=== PATIENT | female | born 1995 | race Caucasian/White ===

== ENCOUNTER 2018-06-24 14:14 | Emergency (ER) | payer MEDICAID ==
[2018-06-24 14:36] VITALS: PULSE 95; RESP 20; TEMP 98.4; O2SAT 97
--- NOTE | 2018-06-24 15:31 | C.PDOC ---
History Of Present Illness 23 year old female with PMHx of asthma, gastritis, and brain cyst presents to the ED complaining of shortness of breath and heart racing upon waking up this morning. States she could not breathe and it felt like a choking sensation. Also reports she was drinking alcohol last night with friends and woke up this morning with diarrhea, nausea, and vomiting. PMD: Dr. Richard Time Seen by Provider: 06/24/18 15:04 Chief Complaint (Nursing): Anxiety History Per: Patient History/Exam Limitations: no limitations Onset/Duration Of Symptoms: Hrs Current Symptoms Are (Timing): Still Present Suicide/Self Injury Attempted (Context): None Modifying Factor(s): None Past Medical History Reviewed: Historical Data, Nursing Documentation, Vital Signs Vital Signs: Last Vital Signs Temp 98.4 F 06/24/18 14:29 Pulse 95 H 06/24/18 14:29 Resp 20 06/24/18 14:29 BP Pulse Ox 97 06/24/18 14:29 - Medical History PMH: Asthma, Gastritis Denies: Chronic Kidney Disease Other PMH: brain cyst Other Surgeries: Hx of surgeries Family History: States: Other - Social History Hx Tobacco Use: No Hx Alcohol Use: Yes (socially ) Hx Substance Use: No - Immunization History Hx Tetanus Toxoid Vaccination: No Hx Influenza Vaccination: No Hx Pneumococcal Vaccination: No Review Of Systems Except As Marked, All Systems Reviewed And Found Negative. Constitutional: Negative for: Fever, Chills Cardiovascular: Negative for: Chest Pain Respiratory: Positive for: Shortness of Breath. Negative for: Cough Gastrointestinal: Positive for: Nausea, Vomiting, Diarrhea. Negative for: Abdominal Pain Physical Exam - Physical Exam Appears: Non-toxic Skin: Warm, Dry Head: Normacephalic Eye(s): bilateral: Normal Inspection Nose: Normal Oral Mucosa: Moist Neck: Supple Chest: Symmetrical Cardiovascular: Rhythm Regular Respiratory: Normal Breath Sounds, No Rales, No Rhonchi, No Wheezing Neurological/Psych: Oriented x3, Normal Speech Gait: Steady ED Course And Treatment O2 Sat by Pulse Oximetry: 97 (RA) Pulse Ox Interpretation: Normal Medical Decision Making Medical Decision Making: Plan - Zofran 4mg PO - O2 via nonrebreather Disposition - Disposition Disposition: HOME/ ROUTINE Disposition Time: 16:05 Condition: IMPROVED Additional Instructions: Ms. Liz, thank you for letting us take care of you today. Return to the ER if your symptoms worsen, or if any problems. Take the medication listed below as prescribed. Follow up with your primary care doctor in 2-3 days for a re-evaluation. Prescriptions: Ondansetron ODT [Zofran ODT] 1 odt PO BID PRN #6 odt PRN Reason: Nausea/Vomiting Instructions: Dehydration, Adult (DC) Print Language: LAO - Clinical Impression Clinical Impression: Dehydration - Scribe Statement The provider has reviewed the documentation as recorded by the Rheaiblizy Castrejon All medical record entries made by the Tavares were at my direction and personally dictated by me. I have reviewed the chart and agree that the record accurately reflects my personal performance of the history, physical exam, medical decision making, and the department course for this patient. I have also personally directed, reviewed, and agree with the discharge instructions and disposition.
== END 2018-06-24 16:16 | disposition home or self-care (01) ==
LOC: C.ER 14:14 → EDBD 14:14 → C.ER 16:16
DX: E86.0 Dehydration (principal)